=== PATIENT | female | born 1950 | race Hispanic/Latino ===

== ENCOUNTER 2018-06-03 15:22 | Emergency (ER) | payer MEDICARE ==
[2018-06-03] MEDS ORDERED: ORPHENADRINE CITRATE 30 MG/ML ML ONE (16:11)
[2018-06-03] MEDS ORDERED: MORPHINE SULFATE 4 MG/1ML SYG ONE (16:12)
== END 2018-06-03 17:21 | disposition home or self-care (01) ==
LOC: EDH 15:22
DX: S30.0XXA Contusion of lower back and pelvis, initial encounter (principal); E11.9 Type 2 diabetes mellitus without complications; I10 Essential (primary) hypertension; M81.0 Age-related osteoporosis without current pathological fracture; E07.9 Disorder of thyroid, unspecified; W01.0XXA Fall on same level from slipping, tripping and stumbling without subsequent striking against object, initial encounter; Y93.01 Activity, walking, marching and hiking; Y92.89 Other specified places as the place of occurrence of the external cause; Y99.8 Other external cause status
CPT/HCPCS: 72100; 72170; 96372 ×2; 99283; J2270; J2360